=== PATIENT | female | born 1990 | race Caucasian/White ===

== ENCOUNTER 2016-12-02 10:55 | Emergency (ER) | payer OTHER ==
[2016-12-02 10:59] VITALS: TEMP 98; BMI 30.2
[2016-12-02] MEDS ORDERED: KETOROLAC TROMETHAMINE 30 MG/1 ML VIAL IVPUSH ONE (11:50)
[2016-12-02] MEDS ORDERED: ONDANSETRON 4 MG/2 ML VIAL IVPB ONE (11:50)
[2016-12-02] MEDS ORDERED: SODIUM CHLORIDE 1,000 ML IV ONE (11:50)
[2016-12-02] MEDS ORDERED: ONDANSETRON 4 MG/2 ML VIAL ONE (11:53)
[2016-12-02] MEDS ORDERED: KETOROLAC TROMETHAMINE 30 MG/1 ML VIAL ONE (11:53)
--- NOTE | 2016-12-02 11:55 | PDOC ---
History of Present Illness - General History Source: Patient Exam Limitations: No Limitations - History of Present Illness Initial Comments: 12/02/16 12:44 Patient is a 26 year old female with a significant past medical history of kidney stones and asthma who presents to the ED with left flank pain since yesterday. Patient states that the pain radiates to the LLQ with associated nausea and 1 episode of vomiting today, NB. Patient states that the pain is constant but varies in severity. Patient reports urinary frequency, hesitancy and darker urine than normal. She denies any modifying or alleviating factors. She denies taking anything for the pain. She states that she was dx with kidney stone in 09/[address] [facility]. Pt states her pain is similar in nature to her previous kidney stones. She denies fever or chills. She denies SOB or cp. She denies constipation or diarrhea. PCP - Dr. Minor ALL: keflex <Giselle Mireles - Last Filed: 12/02/16 12:44> <Moses Burns - Last Filed: 12/02/16 14:48> - General Chief Complaint: Pain, Acute Stated Complaint: BACK PAIN, VOMITING Time Seen by Provider: 12/02/16 11:08 Past History <Giselle Mireles - Last Filed: 12/02/16 12:44> - Past Medical History Asthma: Yes Kidney Stones: Yes - Psycho/Social/Smoking Cessation Hx Anxiety: No Suicidal Ideation: No Smoking History: Current every day smoker Number of Cigarettes Smoked Daily: 20 Information on smoking cessation initiated: Yes 'Breaking Loose' booklet given: 12/02/16 Hx Alcohol Use: Yes (SOCIAL) Drug/Substance Use Hx: No Substance Use Type: None <Moses Burns - Last Filed: 12/02/16 14:48> - Past Medical History Allergies/Adverse Reactions: Allergies Allergy/AdvReac Type Severity Reaction Status Date / Time cephalexin monohydrate Allergy Hives Verified 12/02/16 10:59 [From Keflex] Home Medications: Ambulatory Orders NK [No Known Home Medication] 12/02/16 Review of Systems - Review of Systems Able to Perform ROS?: Yes Comments:: 12/02/16 12:44 CONSTITUTIONAL: No reported: Fever, Chills, Diaphoresis, Generalized Weakness, Malaise, Loss of Appetite HEENT: No reported: Rhinorrhea, Nasal Congestion, Throat Pain, Throat Swelling, Difficulty Swallowing, Mouth Swelling, Ear Pain, Eye Pain, Visual Changes CARDIOVASCULAR: No reported: Chest Pain, Syncope, Palpitations, Irregular Heart Rate, Lightheadedness, Peripheral Edema RESPIRATORY: No reported: Cough, Shortness of Breath, SOB with Exertion, Orthopnea, Wheezing , Stridor, Hemoptysis GASTROINTESTINAL: Reported: abdominal pain, nausea, vomiting No reported: Abdominal Distension, Diarrhea, Constipation, Melena, Hematochezia GENITOURINARY: Reported: flank pain, urgency, frequency No reported: Dysuria,Hesitancy, Genital Pain MUSCULOSKELETAL: No reported: Myalgia, Arthralgia, Joint Swelling, Back pain, Neck Pain SKIN: No reported: Rash, Itching, Pallor HEMEATOLOGIC/IMMUNOLOGIC: No reported: Easy Bleeding, Easy Bruising, Lymphadenopathy, Frequent infections ENDOCRINE: No reported: Unexplained Weight Gain, Unexplained Weight Loss, Heat Intolerance , Cold Intolerance NEUROLOGIC: No reported: Headache, Focal Weakness, Paresthesias, Vertigo, Lightheadedness, Unsteady Gait, Seizure, Mental Status Changes, Incontinence PSYCHIATRIC: No reported: Anxiety, Depression <Giselle Mireles - Last Filed: 12/02/16 12:44> *Physical Exam - Vital Signs Last Vital Signs Temp Pulse Resp BP Pulse Ox 98.0 F 90 20 101/40 99 12/02/16 10:56 12/02/16 10:56 12/02/16 10:56 12/02/16 10:56 12/02/16 10:56 - Physical Exam Comments: 12/02/16 12:45 GENERAL: The patient is awake, alert, and fully oriented, Nontoxic - in no acute distress. HEAD: Normocephalic, atraumatic. EYES: extraocular movements intact, sclera anicteric, conjunctiva clear. ENT: Normal voice, Moist mucous membranes. NECK: Normal range of motion, supple LUNGS: Breath sounds equal, clear to auscultation bilaterally. No wheezes, no rhonchi, no rales. HEART: Regular rate and rhythm, without murmur, rub or gallop. ABDOMEN: Soft, nontender, normoactive bowel sounds. No guarding, no rebound.No CVA tenderness EXTREMITIES: Normal range of motion, no edema. No clubbing or cyanosis. No cords, erythema, or tenderness. NEUROLOGICAL: No facial assymetry, Normal speech, PSYCH: Normal mood, normal affect. SKIN: Warm, Dry, normal turgor <Giselle Mireles - Last Filed: 12/02/16 12:44> - Vital Signs Last Vital Signs Temp Pulse Resp BP Pulse Ox 98.0 F 90 20 101/40 99 12/02/16 10:56 12/02/16 10:56 12/02/16 10:56 12/02/16 10:56 12/02/16 10:56 <Moses Burns - Last Filed: 12/02/16 14:48> ED Treatment Course - LABORATORY CBC & Chemistry Diagram: 12/02/16 12:09 12/02/16 12:09 - ADDITIONAL ORDERS Additional order review: Laboratory Results 12/02/16 12:09 Urine Color Yellow Urine Appearance Slcloudy Urine pH 6.0 Urine Protein 1+ H Urine Glucose (UA) Negative Urine Ketones Negative Urine Blood 3+ H Urine Nitrite Negative Urine Bilirubin Negative Urine Urobilinogen Negative Ur Leukocyte Esterase Negative Urine HCG, Qual Negative 12/02/16 12:09 RBC 4.89 MCV 85.4 MCHC 34.1 RDW 12.7 MPV 9.3 Neutrophils % 80.1 Lymphocytes % 13.8 Monocytes % 5.0 Eosinophils % 0.6 Basophils % 0.5 - Medications Given in the ED: ED Medications Discontinued Medications Generic Name Dose Route Start Last Admin Trade Name Freq PRN Reason Stop Dose Admin Ketorolac Tromethamine 30 mg 12/02/16 11:50 12/02/16 12:07 Toradol Injection - IVPUSH 12/02/16 11:51 30 mg ONCE ONE Administration Ondansetron HCl 4 mg 12/02/16 11:50 12/02/16 12:08 Zofran Injection IVPB 12/02/16 11:51 4 mg ONCE ONE Administration <Giselle Mireles - Last Filed: 12/02/16 12:44> - LABORATORY CBC & Chemistry Diagram: 12/02/16 12:09 12/02/16 12:09 <Moses Burns - Last Filed: 12/02/16 14:48> Medical Decision Making - Medical Decision Making 12/02/16 11:51 26y F hx of kidney stones presents with L sided flank pain since yesterday associated with 1 episode of vomiting w/o fever/chills dysuria. On exam the pt appears well, in no distress. abd soft and w/o cva tenderness. suspect possible kidney stones, will r/o will obtain blood work, ua toradol, fluids, zofran for sypmtomatic relief will reassess A portion of this note was documented by scribe services under my direction. I have reviewed the details of the note, within reason, and agree with the documentation with the following case summary and management plan written by me <Moses Burns - Last Filed: 12/02/16 14:48> *DC/Admit/Observation/Transfer - Attestations Scribe Attestion: 12/02/16 12:45 Documentation prepared by CLARA Norwood, acting as medical billing associate for Moses Burns MD. <Giselle Mireles - Last Filed: 12/02/16 12:44> - Discharge Dispostion Admit: No <Moses Burns - Last Filed: 12/02/16 14:48> Diagnosis at time of Disposition: Flank pain - Discharge Dispostion Disposition: HOME Condition at time of disposition: Improved - Referrals Referrals: Spring Smith [Primary Care Provider] - Bryan Gamboa MD [Staff Physician] - - Patient Instructions Printed Discharge Instructions: DI for Flank Pain Additional Instructions: I suspect that you're pain is due to a kidney stone. Your ultrasound did not reveal any hydronephrosis or swelling of your kidney. Return to the emergency department immediately with ANY new, persistent or worsening symptoms including worsening pain, inability to tolerate oral intake, fever/chills, or any other concerns. Take the ibuprofen every 6 hours for the next 2 days. Take percocet if you have pain that is not treated with the motrin/ibuprofen. Beware that it may make you sleepy, so do not drive or do anything that would put you or others in danger. Take flomax daily. Stay well hydrated. You MUST call and follow up with your doctor and urology within 3 days for further evaluation of your symptoms. Your emergency department visit is not complete without a followup with your doctor for reevaluation. Results were discussed with you. Please make sure your doctor reviews the results of your emergency evaluation. Print Language: SOUTH [place]UDAN[place]
[2016-12-02 12:28] LABS: BASOPHIL 0.5 % (0-2.0); EOSINOPHIL 0.6 % (0-4.5); MCH 29.1 pg (25.7-33.7); MCHC 34.1 g/dl (32.0-36.0); MEAN CELL VOLUME 85.4 fl (80-96); MEAN PLT VOLUME 9.3 fl (7.5-11.1); NEUTROPHILS 80.1 % (42.8-82.8); PLATELET COUNT 294 K/MM3 (134-434); RDW 12.7 % (11.6-15.6); WHITE BLOOD COUNT 14.8 K/mm3 (4.0-10.0)
[2016-12-02 12:34] LABS: URINE APPEARANCE SLCLOUDY; URINE BILIRUBIN NEGATIVE (NEGATIVE); URINE BLOOD 3+ (NEGATIVE); URINE COLOR YELLOW; URINE GLUCOSE (UA) NEGATIVE (NEGATIVE); URINE KETONE NEGATIVE (NEGATIVE); URINE LEUK ESTERASE NEGATIVE (NEGATIVE); URINE NITRITE NEGATIVE (NEGATIVE); URINE UROBILINOGEN NEGATIVE mg/dL (0.2-1.0)
[2016-12-02 12:37] LABS: URINE PROTEIN 1+ (NEGATIVE)
[2016-12-02 12:46] LABS: URINE MUCUS MANY; URINE RBC 344 /hpf (0-3); URINE WBC 2 /hpf (3-5)
[2016-12-02 12:51] LABS: ALBUMIN 3.5 g/dl (3.4-5.0); ANION GAP 7 (8-16); CALCIUM 9.1 mg/dL (8.5-10.1); CO2 23 mmol/L (21-32); CREATININE 0.6 mg/dL (0.55-1.02); GLUCOSE,RANDOM 96 mg/dL (74-106); SGPT/ALT 18 U/L (12-78)
[2016-12-02 12:53] LABS: ALK PHOS 86 U/L (45-117); BILIRUBIN,TOTAL 0.5 mg/dL (0.2-1.0); TOT PROT 7.1 g/dl (6.4-8.2)
[2016-12-02 12:57] LABS: SGOT/AST 23 U/L (15-37)
[2016-12-02 15:16] VITALS: BP 103/66; PULSE 83
== END 2016-12-02 15:16 | disposition home or self-care (01) ==
LOC: JER 10:55
DX: R10.32 Left lower quadrant pain (principal); Z87.442 Personal history of urinary calculi
CPT/HCPCS: 36415; 76775-TC; 80053; 81003; 81015; 83690; 84703; 85025; 99284-25